=== PATIENT | male | born 1970 | race Caucasian/White ===

== ENCOUNTER 2023-10-07 13:33 | Emergency (ER) | payer BC ==
[~2023-10-07] VITALS: Ht 188 cm; Wt 120.0 kg
[2023-10-07 18:39] VITALS: BP 134/99; PULSE 83; RESP 16; O2SAT 98
[2023-10-07] MEDS ORDERED: TETANUS-DIPTH-ACEL PERTUSSIS 0.5ML SYR Tdap IM ONE (18:45)
[2023-10-07] MEDS ORDERED: CEPH500C PO (18:52)
[2023-10-07] MEDS ORDERED: ACET500T58 PO (18:52)
== END 2023-10-07 19:24 | disposition home or self-care (01) ==
LOC: ER 13:33
DX: S01.312A Laceration without foreign body of left ear, initial encounter (principal); F17.210 Nicotine dependence, cigarettes, uncomplicated; X58.XXXA Exposure to other specified factors, initial encounter; Y93.89 Activity, other specified; Y92.89 Other specified places as the place of occurrence of the external cause; Y99.8 Other external cause status
CPT/HCPCS: 12011; 90471; 90715

== ENCOUNTER 2023-10-21 14:58 | Emergency (ER) | payer BC ==
[~2023-10-21 14:58] MED LIST: ACET500T58 PO; CEPH500C PO
== END 2023-10-21 16:20 | disposition left against medical advice (07) ==
LOC: ER 14:58
DX: Z48.00 Encounter for change or removal of nonsurgical wound dressing (principal); Z53.21 Procedure and treatment not carried out due to patient leaving prior to being seen by health care provider

== ENCOUNTER 2023-10-21 17:05 | Emergency (ER) | payer BC ==
[~2023-10-21] VITALS: Ht 188 cm; Wt 118.1 kg
[2023-10-21] MEDS ORDERED: LET TOPICAL SOLN 5 ML TOP ONE (21:45)
[2023-10-21 22:41] VITALS: BP 129/74; PULSE 73; RESP 20; TEMP 98.6; O2SAT 100
== END 2023-10-21 22:52 | disposition home or self-care (01) ==
LOC: ER 17:05
DX: S01.312A Laceration without foreign body of left ear, initial encounter (principal); T81.30XA Disruption of wound, unspecified, initial encounter; F17.210 Nicotine dependence, cigarettes, uncomplicated; Z91.018 Allergy to other foods; Y93.89 Activity, other specified; X58.XXXA Exposure to other specified factors, initial encounter; Y92.89 Other specified places as the place of occurrence of the external cause; Y99.8 Other external cause status
CPT/HCPCS: 12011